=== PATIENT | female | born 1955 | race Caucasian/White ===

== ENCOUNTER 2021-09-24 13:13 | Emergency (ER) | payer OTHER, SELFPAY ==
[2021-09-24 13:23] VITALS: BP 133/62; PULSE 97; RESP 22; TEMP 36.9; O2SAT 97
--- NOTE | 2021-09-24 13:36 | DI.RAD.S_ITS ---
PROCEDURE: XR CHEST 1V INDICATIONS: chest pain TECHNIQUE: One view of the chest was acquired. COMPARISON: None. FINDINGS: Surgical changes and devices: None. Lungs and pleura: Lungs are clear. No pleural effusions or pneumothorax. Mediastinum: Mediastinal contours appear normal. Heart size is normal. Bones and chest wall: No suspicious bony lesions. Overlying soft tissues appear unremarkable. IMPRESSION: No acute cardiopulmonary abnormality. Dictated by: Diego Greer M.D. on 09/24/2021 at 14:06 Approved by: Diego Greer M.D. on 09/24/2021 at 14:07
[2021-09-24 13:41] LABS: Add Manual Diff / Slide Review NO; Basophils Absolute Auto 100 /uL (0-100); Basophils Percent Auto 0.5 % (0-2); Eosinophils Absolute Auto 0 /uL (0-450); Hematocrit 42.7 % (36-46); Lymphocytes Absolute Auto 1500 /uL (1100-4500); Mean Corpuscular HGB Conc 32.8 % (30-36); Mean Corpuscular Hemoglobin 31.8 PG (26-34); Mean Corpuscular Volume 97.1 fL (80-100); Monocytes Absolute Auto 1000 /uL (0-900); Monocytes Percent Auto 8.4 % (3-14); Neutrophils Absolute Auto 9200 /uL (1500-7000); Neutrophils Percent Auto 78.1 % (50-75); Platelet Count 201 X10^3/uL (150-400); Red Blood Cell Count 4.39 X10^6/uL (4.0-5.2); Red Cell Distribution Width 14.8 % (11.6-14.8); White Blood Cell Count 11.8 X10^3/uL (4.5-11.0)
[2021-09-24 13:58] LABS: Alanine Aminotransferase 54 IU/L (<35); Albumin 5.1 g/dL (3.5-5.0); Albumin Globulin Ratio 1.3 (1.0-2.8); Alkaline Phosphatase 86 U/L (38-126); Aspartate Aminotransferase 58 IU/L (14-36); BUN Creatinine Ratio 12.8 (6-22); Bilirubin Total 0.8 mg/dL (0.2-1.3); Blood Urea Nitrogen 10 mg/dL (7-17); Calcium 9.4 mg/dL (8.4-10.2); Carbon Dioxide 11 mmol/L (22-32); Chloride 105 mmol/L (98-107); Creatine Kinase 309 U/L (30-135); Estimated Glomerular Filt Rate > 60.0 mL/min (>60); Globulin 3.8 g/dL (1.7-4.1); Glucose 68 mg/dL (80-110); HEMOLYSIS < 15 (0-50); Lipase 60 U/L (23-300); Magnesium 1.9 mg/dL (1.6-2.3); Potassium 4.6 mmol/L (3.4-5.1); Sodium 137 mmol/L (137-145); Total Protein 8.9 g/dL (6.3-8.2)
[2021-09-24 14:09] LABS: Troponin I < 0.012 ng/mL (0.01-0.034)
[2021-09-24 14:13] LABS: CKMB % Relative Index 3.2 % (1.5-5.0); Creatine Kinase MB 9.85 ng/mL (<2.37)
[2021-09-24] MEDS: MAG HYDROX/ALUMINUM/SIMETH SUS 20 ML, LIDOCAINE VISCOUS 2% 15 ML PO (14:40)
--- NOTE | 2021-09-24 15:19 | ED.CHESTPAIN ---
HPI - Chest Pain General Chief Complaint: Chest Pain Stated Complaint: chest burning Time Seen by Provider: 09/24/21 15:04 Source: patient Mode of arrival: Ambulatory Limitations: no limitations History of Present Illness HPI narrative: Patient is a 66-year-old female here for evaluation of burning sensation in her throat and also in the middle of her chest. She states that the symptoms started last night while she was sleeping. States she woke up with the burning sensation. Did not get worse with palpation. Potentially somewhat worse with movement and position. It did get worse when she tried to drink some water. Has been consistent pain since the onset last evening. Has not tried anything for the symptoms prior to arrival. Has never had anything like this in the past. No problems breathing. No nausea vomiting. No abdominal pain. No urinary symptoms. Related Data Previous Rx's Medication Instructions Recorded sucralfate 1 gram tablet (Carafate) 1 g PO QACHS #60 tab 09/24/21 sucralfate 1 gram tablet (Carafate) 1 g PO QACHS #90 tab 09/24/21 Review of Systems Constitutional Constitutional: Denies fever(s) and Denies headache(s) ENT Ears, Nose, Mouth, and Throat: Denies headache(s) Cardiovascular Cardiovascular: Reports as per HPI, Reports system reviewed and no additional complaints, except as documented and Denies dyspnea Respiratory Respiratory: Denies cough and Denies dyspnea Gastrointestinal Gastrointestinal: Denies abdominal pain, Denies change in bowel habits, Denies nausea and Denies vomiting Genitourinary Genitourinary: Reports system reviewed and no additional complaints, except as documented and Reports as per HPI Integumentary/Breasts Skin/Breast: Reports system reviewed and no additional complaints, except as documented Neurologic Neurologic: Denies headache(s) Hematologic/Lymphatic On Anticoagulants: No Patient History Medical History Patient denies medical problems Social History lives independently: Yes Exam Initial Vital Signs Initial Vital Signs: Vital Signs Temperature 98.4 F 09/24/21 13:23 Pulse Rate 97 H 09/24/21 13:23 Respiratory Rate 22 09/24/21 13:23 Blood Pressure 133/62 09/24/21 13:23 Pulse Oximetry 97 09/24/21 13:23 HENMT Head: normal to inspection and normocephalic Chest Chest: No crepitus and No tenderness Resp Effort & Inspection: normal respiratory effort Auscultation: clear to auscultation bilaterally Cardio Rate: regular rate Rhythm: regular rhythm GI Inspection: normal to inspection Palpation: soft and No tender Skin General: no rashes or lesions noted Neuro General: patient alert, patient awake, patient oriented x3 and moves all extremities Extrem General: normal to inspection and capillary refill normal Psych Appearance: grossly normal and well kempt Course Orders Ordered: ED Orders 09/24/21 13:30 Complete Blood Count AUTO DIFF Stat Comprehensive Metabolic Panel Stat Lipase Stat Magnesium Stat Troponin & CK Cardiac Panel Stat 09/24/21 13:36 XR chest 1V Stat EKG-12 Lead Stat Discontinued Medications Al Hydrox/Mg Hydrox/Simethicone 20 ml/ Lidocaine HCl 15 ml 0 ml PO NOW ONE Stop: 09/24/21 13:52 Last Admin: 09/24/21 14:40 Dose: 35 ml Documented by: LIVIER Vital Signs Vital signs: Vital Signs - 8 hr 09/24/21 13:23 09/24/21 15:33 Temperature 98.4 F Pulse Rate 97 H 89 Respiratory Rate 22 16 Blood Pressure 133/62 135/60 Pulse Oximetry 97 99 MDM - Chest Pain Lab Data Attestation: I reviewed the patient's lab results. Result diagrams: 09/24/21 13:30 09/24/21 13:30 Labs: Lab Results 09/24/21 09/24/21 Range/Units 13:30 13:30 WBC 11.8 H (4.5-11.0) X10^3/uL RBC 4.39 (4.0-5.2) X10^6/uL Hgb 14.0 (12.0-16.0) g/dL Hct 42.7 (36-46) % MCV 97.1 (80-100) fL MCH 31.8 (26-34) PG MCHC 32.8 (30-36) % RDW 14.8 (11.6-14.8) % Plt Count 201 (150-400) X10^3/uL Neut % (Auto) 78.1 H (50-75) % Lymph % (Auto) 13.0 L (25-40) % [place] % (Auto) 8.4 (3-14) % Eos % (Auto) 0.0 L (2-4) % Baso % (Auto) 0.5 (0-2) % Neut # (Auto) 9200 H (4723-4208) /uL Lymph # (Auto) 1500 (4040-7453) /uL [place] # (Auto) 1000 H (0-900) /uL Eos # (Auto) 0 (0-450) /uL Baso # (Auto) 100 (0-100) /uL Sodium 137 (137-145) mmol/L Potassium 4.6 (3.4-5.1) mmol/L Chloride 105 (98-107) mmol/L Carbon Dioxide 11 L (22-32) mmol/L BUN 10 (7-17) mg/dL Creatinine 0.78 (0.52-1.04) mg/dL Estimated GFR > 60.0 (>60) mL/min BUN/Creatinine Ratio 12.8 (6-22) Glucose 68 L (80-110) mg/dL Calcium 9.4 (8.4-10.2) mg/dL Magnesium 1.9 (1.6-2.3) mg/dL Total Bilirubin 0.8 (0.2-1.3) mg/dL AST 58 H (14-36) IU/L ALT 54 H (<35) IU/L Alkaline Phosphatase 86 (38-126) U/L Total Creatine Kinase 309 H (30-135) U/L CK-MB (CK-2) 9.85 H (<2.37) ng/mL CK-MB (CK-2) Rel Index 3.2 (1.5-5.0) % Troponin I < 0.012 (0.01-0.034) ng/mL Total Protein 8.9 H (6.3-8.2) g/dL Albumin 5.1 H (3.5-5.0) g/dL Globulin 3.8 (1.7-4.1) g/dL Albumin/Globulin Ratio 1.3 (1.0-2.8) Lipase 60 (23-300) U/L Imaging Data Chest x-ray: Radiologist's Impression: [address] [address] XRay Report Signed Patient: Ana Laura Echeverria MR#: [id number] : 1955 Acct:[id number] Age/Sex: 66 / F Date of Service: 09/24/21 Loc: ED Accession Number: [id number] ?? Procedure: XR chest 1V Ordering Provider: Sudhir Fall D.O. PROCEDURE:? XR CHEST 1V ? INDICATIONS:? chest pain ? TECHNIQUE:? One view of the chest was acquired.? ? COMPARISON:? None. ? FINDINGS:? ? Surgical changes and devices:? None.? ? Lungs and pleura:? Lungs are clear.? No pleural effusions or pneumothorax.? ? Mediastinum:? Mediastinal contours appear normal.? Heart size is normal.? ? Bones and chest wall:? No suspicious bony lesions.? Overlying soft tissues appear unremarkable.? ? IMPRESSION:? No acute cardiopulmonary abnormality. ? ? Dictated by: Diego Greer M.D. on 09/24/2021 at 14:06 ? ? Approved by: Diego Greer M.D. on 09/24/2021 at 14:07?? ECG Data Attestation: I personally reviewed and interpreted this ECG as follows: Interpretation: Sinus rhythm Ventricular rate 94 Normal axis Normal QRS Normal QTC No ST T wave changes MDM Narrative Medical decision making narrative: Patient reported a tremendous improvement of her symptoms after the GI cocktail. She has had consistent symptoms for greater than 12 hours with a negative troponin and normal EKG. Chest x-ray is unremarkable. Low suspicion for ACS given her presentation today. I have a higher suspicion that this is GI related. I did discuss this with her. Will start her on Carafate. It was transmitted to the pharmacy of her choice. She was instructed to contact her primary doctor for follow-up and return to the emergency department for any new or worsening symptoms. She did expressed understanding and agreement this plan. Discharge Plan Departure Patient Disposition: Home Clinical Impression: Atypical chest pain Instructions: DI for Gastroesophageal Reflux Disease (GERD), DI for Atypical Chest Pain Activity Restrictions/Additional Instructions: I do recommend that you contact your primary doctor for a follow-up. Please take the Carafate as directed. Return to the emergency department for any new or worsening symptoms. Prescriptions: New sucralfate [Carafate] 1 gram tablet 1 g PO QACHS Qty: 90 0RF sucralfate [Carafate] 1 gram tablet 1 g PO QACHS Qty: 60 0RF
[2021-09-24 15:33] VITALS: BP 135/60; PULSE 89; RESP 16; O2SAT 99
== END 2021-09-24 15:27 | disposition home or self-care (01) ==
PROVIDERS: Emergency Provider Emergency Medicine
DX: R07.89 Other chest pain (principal)
CPT/HCPCS: 36415; 71045; 80053; 82550; 82553; 83690; 83735; 84484; 85025; 93005; 99284